=== PATIENT | female | born 1970 | race Caucasian/White ===

== ENCOUNTER 2016-11-23 13:33 | Emergency (ER) | payer OTHER ==
[~2016-11-23] VITALS: Ht 165.1 cm; Wt 68.0 kg
[2016-11-23 13:38] VITALS: TEMP 36.7; Ht 165.1 cm; Wt 68.0 kg
[2016-11-23] MEDS ORDERED: NXM/40 PO (14:34)
[2016-11-23] MEDS ORDERED: LINA1CAP2 PO (14:34)
[2016-11-23] MEDS ORDERED: DIAZ-165 PO (14:34)
[2016-11-23] MEDS ORDERED: ACYC1OIN4 TOP (14:34)
[2016-11-23] MEDS ORDERED: LINA1CAP PO (14:34)
[2016-11-23] MEDS ORDERED: [UNRECOGNIZED DRUG - CODE] PO (14:34)
[2016-11-23] MEDS ORDERED: MULT-506 PO (14:34)
[2016-11-23] MEDS ORDERED: UBIQ1CAP8 PO (14:34)
[2016-11-23] MEDS ORDERED: SACC250C PO (14:34)
[2016-11-23] MEDS ORDERED: [UNRECOGNIZED DRUG - CODE] PO (14:34)
[2016-11-23] MEDS ORDERED: LEVO50TA PO (14:34)
[2016-11-23] MEDS ORDERED: GLUT1POW PO (14:34)
[2016-11-23] MEDS ORDERED: BTLAI INJ (14:34)
[2016-11-23] MEDS ORDERED: OMEGCAP2 PO (14:34)
[2016-11-23] MEDS ORDERED: MAGN1TAB21 PO (14:34)
[2016-11-23] MEDS ORDERED: PYRI60TA3 PO (14:34)
[2016-11-23] MEDS ORDERED: ACET-1256 PO (14:34)
[2016-11-23] MEDS ORDERED: MISC1TAB29 PO (14:34)
[2016-11-23] MEDS ORDERED: DICL1GEL12 TOP (14:34)
[2016-11-23] MEDS ORDERED: LORA10CA2 PO (14:34)
[2016-11-23] MEDS ORDERED: PRMT10 PO (14:34)
[2016-11-23] MEDS ORDERED: LEVO25TA PO (14:34)
[2016-11-23] MEDS ORDERED: CHOL100027 PO (14:34)
[2016-11-23] MEDS ORDERED: [UNRECOGNIZED DRUG - CODE] PO (14:34)
[2016-11-23] MEDS ORDERED: PROP10TA7 PO (14:34)
[2016-11-23] MEDS ORDERED: MELA1CAP PO (14:34)
[2016-11-23] MEDS ORDERED: LACT1CAP6 PO (14:34)
[2016-11-23] MEDS ORDERED: CYCL0.052 OPB (14:34)
[2016-11-23] MEDS ORDERED: GLAT1INJ INJ (14:34)
[2016-11-23] MEDS ORDERED: IBUP-1449 PO (14:34)
[2016-11-23] MEDS ORDERED: medical marijuana (14:35)
[2016-11-23] MEDS ORDERED: LTMOPS OP (14:35)
[2016-11-23 14:49] LABS: URINE APPEARANCE CLEAR (CLEAR); URINE BILIRUBIN NEG (NEG); URINE COLOR YELLOW; URINE EPITHELIAL CELL AUTO 0-5 /lpf (0-5); URINE NITRITE NEG (NEG); URINE PH 5.5 (4.5-7.5); URINE SPECIFIC GRAVITY 1.014 (1.000-1.030); UROBILINOGEN NEG (NEG); ZZUR CULT IF INDIC CLEAN CATCH NO
[2016-11-23 14:52] LABS: MANUAL MICROSCOPIC REQUIRED? NO; REVIEW REQ? NO
[2016-11-23 14:58] LABS: BASO % 0.8 %; BASO ABS # 0.05 K/uL (0-0.2); COMPLETE YES; IG% 0.2 %; LYMPH % 37.5 %; LYMPH ABS # 2.34 K/uL (1.2-3.4); MEAN CELL VOLUME 83.3 fL (80-100); MEAN CORPUSCULAR HGB CONC 35.9 g/dl (32-36); MONO % 8.2 %; NEUT % 50.3 %; PLATELET COUNT 278 K/uL (130-400); RED BLOOD COUNT 4.44 M/uL (4.2-5.4); WHITE BLOOD COUNT 6.24 K/uL (4.8-10.8)
[2016-11-23] MEDS ORDERED: SODIUM CHLORIDE 0.9% 1000ML 2,000 ML IV STA (15:06)
[2016-11-23] MEDS ORDERED: PROMETHAZINE HCL INJ 12.5 MG in SODIUM CHLORIDE 0.9% 50ML 50 ML IV STA (15:06)
[2016-11-23] MEDS ORDERED: HYDROmorphone INJ 2 MG/ML SYR/VIAL IV PRN (15:15)
--- NOTE | 2016-11-23 15:17 | EMERGENCY ROOM VISIT NOTE ---
History Report prepared by Joel: Elian Cordova Under the Supervision of: Dr. Mannie Inman M.D. First contact with patient: 15:01 Chief Complaint: GI ASSESSMENT Stated Complaint: GASTRIC PAIN, SPASMS, PAIN, THYROID ISSUES Nursing Triage Summary: Triage note: Pt reports abd stabbing pain over the past 4 days. "pt reports i can't eat or drink anything." pt reports diarhhea " but it has been going on for many many months." pt reports chronic nausea. pt reports hx of chronic abd spasms and "i have a numbner of medical conditions." History of Present Illness The patient is a 45 year old female who presents to the Emergency Room with complaints of persistent diarrhea beginning four days prior to arrival. She currently rates her discomfort as a 7/10 in severity. The patient associates nausea and abdominal cramping with today's symptoms. She states the diarrhea has been occurring over the past several weeks, however, recently just a sip of water will cause her to experience an episode of diarrhea. The patient notes she has consumed about 16 ounces of water over the past four days and experiences around 10 episodes of diarrhea per day. She also presents with complaints of worsening left shoulder pain beginning four days prior to arrival. The patient states her left shoulder pain began in the summer, but has worsened over the past several days. She attributes her shoulder pain to the position she was in for a procedure involving Botox to her lower esophageal sphincter. The patient states she saw her GI doctor on November 01, and the Bentyl she was given has not relieved her symptoms. She notes she has a history of chronic Lyme's Disease, connective tissue disease, EDS, dysautonomia, and situs inversus. The patient states she has been taking Zofran every day. She notes she recently finished Xifaxan for a small intestinal bacterial growth ( SIBO). The patient notes she is from [place], in which, she uses medical marijuana and 5 mg Valium three times a day. She states she has been taking her morning medications, but has not been taking her supplements consistently. The patient notes her thyroid testing started showing hyperthyroidism. Therefore, her levels were cut in October 27. As per step-father, the patient has appeared lethargic and garcia since the levels were decreased. The patient denies vomiting, fever, and a cough. Source of History: patient Onset: four days [employer] Position: other (global) Symptom Intensity: 05/22 Timing: other (persistent) Associated Symptoms: + abdominal pain (cramping), + diarrhea, + nausea Note: Associated symptoms: left shoulder pain. Review of Systems See HPI for pertinent positives & negatives. A total of 10 systems reviewed and were otherwise negative. Past Medical & Surgical Medical Problems: (1) Connective tissue disease (2) Dysautonomia (3) EDS (Jamshid-Danlos syndrome) (4) Lyme disease (5) Situs inversus Surgical Problems: (1) S/P oophorectomy Family History Patient reports no known family medical history. Social History Smoking Status: Never Smoker Marital Status: Occupation Status: disabled Current/Historical Medications Scheduled Caprylic Capric Triglyceride ( (Caprylic/Capric Triglycer), 800 MG PO TID Cholecalciferol (Vitamin D 1000 Unit), 5,000 INTER.UNIT PO DAILY Cyclosporine (Ophth) (Restasis), 2 DROP OPB TID Diazepam (Valium), 5 MG PO TID Esomeprazole Magnesium (Nexium), 40 MG PO Q2D Glatiramer Acetate (Copaxone), 40 MG INJ 3XWK Glutathione (Glutathione-L Reduced), 2 ML PO BID Lactobacillus (Probiotic), 2 CAP PO BID Levomefolic Acid (5-Mthf) (5-Mthf), 5 MG PO DAILY Levothyroxine Sodium (Synthroid), 25 MCG PO Q2D Levothyroxine Sodium (Synthroid), 50 MCG PO Q2D Licorice-Glycine (Rhizinate 3X), 2 TAB PO TIDM Linaclotide (Linzess), 145 MCG PO QPM Linaclotide (Linzess), 290 MCG PO QAM Loratadine (Claritin), 10 MG PO DAILY Loteprednol Etabonate (Lotemax), 1 DROPS OP BID Magnesium Citrate (Mg Suppleme (Magnesium Citrate), 300 MG PO BID Bzalwrguu-Arfjziiw-Tcrnfxyob-P (Melatonin + L-Theanine), 2 TAB PO HS Midodrine (Midodrine HCl), 15 MG PO TID Misc Natural Products (Cortisol Entry Processor), 2 TABS PO QAM Multivitamin (Multivitamin), 1 TAB PO DAILY Miller-3 Fatty Acids (Fish Oil), 3 CAP PO DAILY Propranolol (Inderal), 10 MG PO BID Pyridostigmine [place] (Mestinon), 60 MG PO TID Saccharomyces Boulardii (Florastor), 250 MG PO BID Ubiquinol (Ubiquinol), 200 MG PO DAILY Scheduled PRN Ibuprofen Tab (Motrin), 400 MG PO for Pain Oxycodone Ir (Roxicodone Ir), 1-2 TAB PO Q4H PRN for Pain Miscellaneous Medications Acetaminophen (Tylenol), 500 MG PO Acyclovir Topical (Acyclovir), 1 APPLN TOP Botulinum Toxin Type A (Botox), Unknown Dose INJ Diclofenac Sodium (Topical) (Voltaren 1% Top Gel), 1 APPLN TOP [medical marijuana] Allergies Coded Allergies: Penicillins (Unverified Allergy, Unknown, rash, 11/23/16) Physical Exam Vital Signs Date Time Temp Pulse Resp B/P Pulse Ox O2 Delivery O2 Flow Rate FiO2 11/23/16 17:27 74 16 109/79 100 Room Air 11/23/16 15:57 53 16 118/71 96 Room Air 11/23/16 13:38 36.7 84 18 98/71 98 Room Air Physical Exam GENERAL: Patient is in no acute distress. HEENT: No acute trauma, normocephalic atraumatic, mucous membranes dry, no nasal congestion, no scleral icterus. NECK: No stridor, no adenopathy, no meningismus, trachea is midline. LUNGS: Clear to auscultation bilaterally, no wheeze, no rhonchi, breath sounds equal. HEART: Without murmurs gallops or rubs, regular rate and rhythm. ABDOMEN: Mildly diffusely tender. Soft, bowel sounds present and hyperactive, no hernias, no peritonitis. EXTREMITIES: No cyanosis or edema, full range of motion of all the joints without pain or difficulty, no signs for acute trauma. NEUROLOGIC: Oriented x 3, no acute motor or sensory deficits, no focal weakness. SKIN: No rash, no jaundice, no diaphoresis. Medical Decision & Procedures ER Provider Diagnostic Interpretation: X-ray results as stated below per interpretation by me and the radiologist: ABDOMEN 2VIEW W/PA CHEST RTN CLINICAL HISTORY: Lower abdominal pain and cramps COMPARISON STUDY: No previous studies for comparison. FINDINGS: The erect chest reveals no free air. There is no focal pulmonary consolidation. Erect and supine views the abdomen reveal mild gaseous prominence of left abdominal bowel loops which appears represent both small bowel and colon. There are scattered air-fluid levels. There are no transition zone to indicate a high-grade bowel obstruction. There is a paucity of gas within the right abdomen. IMPRESSION: Nonspecific bowel gas pattern with a paucity of bowel gas within the right abdomen. No evidence of free air. No conventional radiographic evidence of a high-grade bowel obstruction. Scattered air-fluid levels. If clinically indicated, CT scanning could be obtained in follow-up to explain the paucity of right abdominal bowel gas Electronically signed by: Renny Degroot M.D. 11/23/2016 3:55 PM Dictated Date/Time: 11/23/2016 3:50 PM Laboratory Results 11/23/16 14:40 Red Blood Count 4.44, Mean Corpuscular Volume 83.3, Mean Corpuscular Hemoglobin 30.0, Mean Corpuscular Hemoglobin Concent 35.9, Mean Platelet Volume 10.0, Neutrophils (%) (Auto) 50.3, Lymphocytes (%) (Auto) 37.5, Monocytes (%) (Auto) 8.2, Eosinophils (%) (Auto) 3.0, Basophils (%) (Auto) 0.8, Neutrophils # (Auto) 3.14, Lymphocytes # (Auto) 2.34, Monocytes # (Auto) 0.51, Eosinophils # (Auto) 0.19, Basophils # (Auto) 0.05 11/23/16 14:40 Test 11/23/16 14:25 11/23/16 14:40 Urine Color YELLOW Urine Appearance CLEAR (CLEAR) Urine pH 5.5 (4.5-7.5) Urine Specific [place] 1.014 (1.000-1.030) Urine Protein NEG (NEG) Urine Glucose (UA) NEG (NEG) Urine Ketones TRACE (NEG) Urine Occult Blood NEG (NEG) Urine Nitrite NEG (NEG) Urine Bilirubin NEG (NEG) Urine Urobilinogen NEG (NEG) Urine Leukocyte Esterase TRACE (NEG) Urine WBC (Auto) 1-5 /hpf (0-5) Urine RBC (Auto) 0-4 /hpf (0-4) Urine Hyaline Casts (Auto) 1-5 /lpf (0-5) Urine Epithelial Cells (Auto) 0-5 /lpf (0-5) Urine Bacteria (Auto) NEG (NEG) White Blood Count 6.24 K/uL (4.8-10.8) Red Blood Count 4.44 M/uL (4.2-5.4) Hemoglobin 13.3 g/dL (12.0-16.0) Hematocrit 37.0 % (37-47) Mean Corpuscular Volume 83.3 fL (80-100) Mean Corpuscular Hemoglobin 30.0 pg (25-34) Mean Corpuscular Hemoglobin Concent 35.9 g/dl (32-36) Platelet Count 278 K/uL (130-400) Mean Platelet Volume 10.0 fL (7.4-10.4) Neutrophils (%) (Auto) 50.3 % Lymphocytes (%) (Auto) 37.5 % Monocytes (%) (Auto) 8.2 % Eosinophils (%) (Auto) 3.0 % Basophils (%) (Auto) 0.8 % Neutrophils # (Auto) 3.14 K/uL (1.4-6.5) Lymphocytes # (Auto) 2.34 K/uL (1.2-3.4) Monocytes # (Auto) 0.51 K/uL (0.11-0.59) Eosinophils # (Auto) 0.19 K/uL (0-0.5) Basophils # (Auto) 0.05 K/uL (0-0.2) RDW Standard Deviation 39.6 fL (36.4-46.3) RDW Coefficient of Variation 13.1 % (11.5-14.5) Immature Granulocyte % (Auto) 0.2 % Immature Granulocyte # (Auto) 0.01 K/uL (0.00-0.02) Anion Gap 8.0 mmol/L (3-11) Est Creatinine Clear Calc Drug Dose 72.6 ml/min Estimated GFR () 92.0 Estimated GFR (Non- 79.3 BUN/Creatinine Ratio 16.0 (10-20) Calcium Level 9.9 mg/dl (8.5-10.1) Magnesium Level 2.0 mg/dl (1.8-2.4) Total Bilirubin 0.5 mg/dl (0.2-1) Aspartate Amino Transf (AST/SGOT) 13 U/L (15-37) Alanine Aminotransferase (ALT/SGPT) 22 U/L (12-78) Alkaline Phosphatase 76 U/L (45-117) Total Protein 8.0 gm/dl (6.4-8.2) Albumin 4.2 gm/dl (3.4-5.0) Globulin 3.8 gm/dl (2.5-4.0) Albumin/Globulin Ratio 1.1 (0.9-2) Lipase 119 U/L (73-393) Thyroid Stimulating Hormone (TSH) 0.550 uIu/ml (0.300-4.500) Free Thyroxine 1.13 ng/dl (0.80-1.60) Laboratory results reviewed by me. Medications Administered Medications (Trade) Dose Ordered Sig/Jonnie Route Start Time Stop Time Status Last Admin Dose Admin Sodium Chloride 2,000 ml @ 999 mls/hr Q2H1M STAT IV 11/23/16 15:06 11/23/16 17:06 DC 11/23/16 15:18 999 MLS/HR Promethazine HCl/ Sodium Chloride (Phenergan Inj/ Nss 50ml) 50.5 ml @ 204 mls/hr NOW STAT IV 11/23/16 15:06 11/23/16 15:20 DC 11/23/16 15:18 204 MLS/HR Hydromorphone HCl (Dilaudid Inj) 1 mg Q30M PRN IV 11/23/16 15:15 11/23/16 18:38 DC 11/23/16 15:19 1 MG ED Course 1502: The patient was evaluated in room C10. A complete history and physical exam was performed. 1506: Ordered Promethazine HCl 12.5 mg/Sodium Chloride 50.5 ml @ 204 mls/hr IV, Sodium Chloride 2,000 ml @ 999 mls/hr IV. 1515: Ordered Dilaudid Inj 1 mg IV. 1705: Reevaluated the patient. Discussed results and discharge instructions: She verbalized understanding and agreement. The patient is ready for discharge. Medical Decision The differential diagnoses include but are not limited to: dehydration, electrolyte imbalance, anemia, UTI, pneumonia, bowel obstruction, viral illness , medication reaction, exacerbation of chronic disease. There is no leukocytosis or concerning anemia. No significant electrolyte abnormality, kidney failure or hepatitis. There is no pancreatitis. The patient appears to be in a euthyroid state. Urinalysis does not show evidence for infection or for significant hematuria. Obstruction series does not show bowel obstruction, free air or pneumonia. The patient received IV saline, IV Phenergan and IV Dilaudid, she feels significantly improved. The patient's workup is benign, she has had issues like this in the past, she has a lot of chronic disease that sometimes flares. She is not toxic or febrile. I do think she can be discharged to continue her medications as before. I will add a few oxycodone for severe pain. She has nausea medication at home. If things are worsening, she can return. She is traveling back to her home town tomorrow. [facility] Search Results: patient reviewed within database, no issues identified Impression Primary Impression: Dehydration Additional Impression: Acute on chronic pain Scribe Attestation The scribe's documentation has been prepared under my direction and personally reviewed by me in its entirety. I confirm that the note above accurately reflects all work, treatment, procedures, and medical decision making performed by me. Departure Information Dispostion Home / Self-Care Prescriptions Oxycodone Ir (Roxicodone Ir) 5 Mg Tab 1-2 TAB PO Q4H Y for Pain, #8 TAB Prov: Mannie Inman M.D. 11/23/16 Referrals No Doctor, Assigned (PCP) Forms HOME CARE DOCUMENTATION FORM, IMPORTANT VISIT INFORMATION Patient Instructions A Signature Page, My [facility] Additional Instructions zofran as before for nausea and vomiting oxy ir 1 tab every 4 hours for severe pain follow with [facility] as scheduled return if worsening all testing today was ok as discussed Problem Qualifiers
[2016-11-23 15:18] LABS: CALCIUM 9.9 mg/dl (8.5-10.1); CREATININE 0.88 mg/dl (0.60-1.20); POTASSIUM 3.7 mmol/L (3.5-5.1)
[2016-11-23 15:21] LABS: ALB/GLOB RATIO 1.1 (0.9-2)
[2016-11-23 15:53] LABS: THYROID STIMULATING HORMONE 0.55 uIu/ml (0.300-4.500)
--- NOTE | 2016-11-23 15:57 | DIAGNOSTIC IMAGING REPORT ---
ABDOMEN 2VIEW W/PA CHEST RTN CLINICAL HISTORY: Lower abdominal pain and cramps COMPARISON STUDY: No previous studies for comparison. FINDINGS: The erect chest reveals no free air. There is no focal pulmonary consolidation. Erect and supine views the abdomen reveal mild gaseous prominence of left abdominal bowel loops which appears represent both small bowel and colon. There are scattered air-fluid levels. There are no transition zone to indicate a high-grade bowel obstruction. There is a paucity of gas within the right abdomen. IMPRESSION: Nonspecific bowel gas pattern with a paucity of bowel gas within the right abdomen. No evidence of free air. No conventional radiographic evidence of a high-grade bowel obstruction. Scattered air-fluid levels. If clinically indicated, CT scanning could be obtained in follow-up to explain the paucity of right abdominal bowel gas Electronically signed by: Renny Degroot M.D. 11/23/2016 3:55 PM Dictated Date/Time: 11/23/2016 3:50 PM
[2016-11-23] MEDS ORDERED: OXYC1TAB3 PO (17:18)
[2016-11-23 17:27] VITALS: BP 109/79; PULSE 74; O2SAT 100
== END 2016-11-23 17:29 | disposition home or self-care (01) ==
LOC: C.EDB 13:37 → C.EDC 17:29
DX: E86.0 Dehydration (principal); G89.29 Other chronic pain; R10.9 Unspecified abdominal pain; M25.512 Pain in left shoulder; Q79.6 Ehlers-Danlos syndromes; G90.1 Familial dysautonomia [Riley-Day]; Q89.3 Situs inversus; E05.90 Thyrotoxicosis, unspecified without thyrotoxic crisis or storm; Z79.899 Other long term (current) drug therapy

== ENCOUNTER 2017-11-08 14:36 | Emergency (ER) | payer OTHER ==
[~2017-11-08] VITALS: Ht 165.1 cm; Wt 68.1 kg
[~2017-11-08 14:36] MED LIST: ACET-1256 PO; ACYC1OIN4 TOP; BTLAI INJ; CHOL100027 PO; CYCL0.052 OPB; DIAZ-165 PO; DICL1GEL12 TOP; GLAT1INJ INJ; GLUT1POW PO; IBUP-1449 PO; LACT1CAP6 PO; LEVO25TA PO; LEVO50TA PO; LINA1CAP PO; LINA1CAP2 PO; LORA10CA2 PO; LTMOPS OP; MAGN1TAB21 PO; MELA1CAP PO; MISC1TAB29 PO; MULT-506 PO; NXM/40 PO; OMEGCAP2 PO; PRMT10 PO; PROP10TA7 PO; PYRI60TA3 PO; SACC250C PO; UBIQ1CAP8 PO; [UNRECOGNIZED DRUG - CODE] PO; [UNRECOGNIZED DRUG - CODE] PO; [UNRECOGNIZED DRUG - CODE] PO; medical marijuana
[2017-11-08 14:49] VITALS: TEMP 36.4; Ht 165.1 cm; Wt 68.1 kg
[2017-11-08] MEDS ORDERED: MRN5 PO (15:33)
[2017-11-08] MEDS ORDERED: ZNTT/150 PO (15:35)
[2017-11-08] MEDS ORDERED: AMT24 PO (15:35)
[2017-11-08] MEDS ORDERED: GABA1SOL4 PO (15:36)
[2017-11-08] MEDS ORDERED: DiphenhydrAMINE HCL 50 MG/ML VIAL IV STA (15:53)
[2017-11-08] MEDS ORDERED: METHYLPREDNISOLONE 125 MG VIAL IV STA (15:53)
--- NOTE | 2017-11-08 15:56 | EMERGENCY ROOM VISIT NOTE ---
History Report prepared by Joel: Lila Roman Under the Supervision of: Dr. Buster Lobo M.D. First contact with patient: 15:13 Chief Complaint: ALLERGIC REACTION Stated Complaint: HIVES,HEAVY CHEST,PAINFUL BREATHING WHEN ACTIVE History of Present Illness The patient is a 46 year old female with a past medical history of connective tissue disease, dysautonomia, EDS, situs inversus, and lyme disease who presents to the ED with a cc of a persistent allergic reaction beginning 2 days ago. Positive shortness of breath, occasional chest pain, and chronic nausea. The patient states that 3 days ago she began taking Amitiza for her constipation, noting that an hour later she began experiencing an itchy and painful rash that spread throughout her body. She notes that she took Claritin this morning, which did not relieve her symptoms. Source of History: patient Onset: 2 days ago Position: other (global) Quality: other (allergic reaction) Timing: other (persistent) Review of Systems See HPI for pertinent positives and negatives. A total of ten systems were reviewed and were otherwise negative. Past Medical & Surgical Medical Problems: (1) Connective tissue disease (2) Dysautonomia (3) EDS (Jamshid-Danlos syndrome) (4) Lyme disease (5) Situs inversus Surgical Problems: (1) S/P oophorectomy Family History Patient reports no known family medical history. Social History Smoking Status: Never Smoker Marital Status: Occupation Status: disabled Current/Historical Medications Scheduled Cholecalciferol (Vitamin D 1000 Unit), 10,000 INTER.UNIT PO DAILY Cyclosporine (Ophth) (Restasis), 2 DROP OPB TID Diazepam (Valium), 5 MG PO TID Gabapentin (Gabapentin), 2 ML PO HS Glatiramer Acetate (Copaxone), 40 MG INJ 3XWK Levothyroxine Sodium (Synthroid), 50 MCG PO DAILY Loratadine (Claritin), 10 MG PO DAILY Lubiprostone (Amitiza), 24 MCG PO BID Midodrine (Midodrine HCl), 15 MG PO TID Ranitidine (Zantac), 150 MG PO DAILY Miscellaneous Medications Acetaminophen (Tylenol), 500 MG PO Acyclovir Topical (Acyclovir), 1 APPLN TOP Botulinum Toxin Type A (Botox), Unknown Dose INJ Allergies Coded Allergies: Penicillins (Unverified Allergy, Unknown, rash, 11/08/17) Erythromycin (Unverified Adverse Reaction, Unknown, GI UPSET, 11/08/17) Lidocaine (Unverified Adverse Reaction, Unknown, GI ISSUES, 11/08/17) Physical Exam Vital Signs Date Time Temp Pulse Resp B/P (MAP) Pulse Ox O2 Delivery O2 Flow Rate FiO2 11/08/17 17:49 53 12 115/74 96 11/08/17 17:17 50 16 110/71 97 Room Air 11/08/17 16:05 98 Room Air 11/08/17 16:00 51 122/74 96 Room Air 11/08/17 15:50 98 Room Air 11/08/17 15:39 54 16 125/79 97 Room Air 11/08/17 15:32 50 11/08/17 15:25 97 Room Air 11/08/17 15:20 56 16 99/52 98 Room Air 11/08/17 14:49 36.4 63 18 135/68 100 Room Air Physical Exam GENERAL: Awake, alert, well-appearing, NAD HENT: Normocephalic, atraumatic. EYES: Normal conjunctiva. Sclera non-icteric. NECK: Supple. No nuchal rigidity. FROM. RESPIRATORY: CTAB, no rhonchi, wheezing, crackles CARDIAC: RRR, no MRG ABDOMEN: Soft, NTND, BS+ MSK: No chest wall TTP, no LE edema NEURO: GCS 15, CN 2-12 intact, moves all 4s on command SKIN: Excoriation to right upper extremity, some blanching redness maculopapular. No rash or jaundice noted. Medical Decision & Procedures Laboratory Results Test 11/08/17 15:45 Bedside Troponin I < 0.030 ng/ml (0-0.045) Laboratory results reviewed by me Medications Administered Medications (Trade) Dose Ordered Sig/Jonnie Route Start Time Stop Time Status Last Admin Dose Admin Methylprednisolone Sodium Succinate (Solu-Medrol IV) 125 mg NOW STAT IV 11/08/17 15:53 11/08/17 16:00 DC 11/08/17 16:14 125 MG Diphenhydramine HCl (Benadryl Inj) 50 mg NOW STAT IV 11/08/17 15:53 11/08/17 16:00 DC 11/08/17 16:14 50 MG Famotidine (Pepcid Tab) 20 mg NOW ONCE PO 11/08/17 16:00 11/08/17 16:01 DC 11/08/17 16:14 20 MG ECG Indication: other (allergic reaction) Rate (beats per minute): 51 Rhythm: sinus bradycardia Findings: left axis deviation, other (normal interval, no STS changes or TWI) Change: 1729- repeated EKG findings: Sinus bradycardia, rate of 53, normal intervals, normal axis, no STS changes or ITW. ED Course 152: The patient was evaluated in room C2A. A complete history and physical exam was performed. 171: I reevaluated the patient, who was resting comfortably. Ordered a second EKG. 1728: I evaluated the second EKG and compared the findings. 1809: I reevaluated the patient. Discussed results and discharge instructions: She verbalized understanding and agreement. The patient is ready for discharge. Medical Decision The patient is a 46 year old female with a past medical history of connective tissue disease, dysautonomia, EDS, situs inversus, and lyme disease who presents to the ED with a cc of a persistent allergic reaction beginning 2 days ago. Differential diagnosis: Etiologies such as allergic reaction, anaphylaxis, urticaria, Funes-Jack syndrome, toxic epidermal necrolysis, erythema multiforme, cellulitis, as well as others were entertained. Patient was seen and evaluated at the bedside. Patient stated that she was recently started on a medication for constipation and did notice a small rash that developed on her bilateral upper extremities. Patient also complaint of some mild chest discomfort. Patient has many medical problems. Patient's story does not sound consistent with any sort of ischemic chest pain. Patient did have an initial EKG with affirmative artifact in the inferior leads which read as acute NE however I believe this is related to the artifact. Patient did have a repeat EKG which was nonischemic. Of note the patient also had a negative troponin. Believe that her rash as it was itchy and it began after the medication began was was likely the culprit. Patient was advised to stop taking this medication. Patient was treated with steroids, famotidine, and Benadryl. Patient's rash is mildly improved. Patient had no nausea or vomiting. Patient did not have any stridor or wheezing. Patient was reassessed deemed suitable for at least follow-up and treatment. Patient was advised to stop the medication to follow-up with her family physician in order to discuss a different medication that she may try for her constipation. Patient was given strict follow-up, discharge, and return precautions. All questions were answered. Patient was deemed suitable for outpatient follow-up at this time. Patient agreed with the plan of care and was safely discharged home. Medication Reconcilliation Current Medication List: was personally reviewed by me Impression Primary Impression: Urticaria Additional Impression: Allergic reaction Scribe Attestation The scribe's documentation has been prepared under my direction and personally reviewed by me in its entirety. I confirm that the note above accurately reflects all work, treatment, procedures, and medical decision making performed by me. Departure Information Dispostion Home / Self-Care Referrals No Doctor, Assigned (PCP) Patient Instructions ED Allergic Reaction Local Other, ED Urticaria, My [facility] Additional Instructions Please return to the emergency department if you have worsening or recurrent symptoms not amenable to at-home treatment. Please call for a follow-up appointment with her primary care physician. Please take your medications as prescribed. If you have other concerns and/or complaints please feel free to also call your primary care physician's office or return the ED for further evaluation, management, and treatment. You may use Cortaid or Benadryl cream to help with itchiness and urticaria. If you are still having itchiness you may take [id number] Benadryl and or other antihistamine like Pepcid or famotidine. You may take 600 mg Ibuprofen every 6 hours as needed for pain with food for no more than 2 consecutive days. You may take tylenol 1000 mg every 6 hours as needed for pain. You may take motrin and tylenol separately or at the same time. Take your medications as prescribed. You have been examined and treated today on an emergency basis only. This is not a substitute for, or an effort to provide, complete comprehensive medical care. It is impossible to recognize and treat all injuries or illnesses in a single emergency department visit. It is therefore important that you follow up closely with [facility], your PCP, and/or your specialist(s). Call as soon as possible for an appointment. Thank you for your time and consideration. I look forward to speaking with you again soon. Please don't hesitate to call us if you have any questions. Problem Qualifiers Additional Impression: Allergic reaction Encounter type: initial encounter Qualified Codes: T78.40XA - Allergy, unspecified, initial encounter
[2017-11-08] MEDS ORDERED: FAMOTIDINE 20 MG TAB PO ONE (16:00)
[2017-11-08 16:05] VITALS: O2SAT 98
[2017-11-08 17:49] VITALS: BP 115/74; PULSE 53; O2SAT 96
== END 2017-11-08 17:50 | disposition home or self-care (01) ==
LOC: C.EDB 14:37 → C.EDC 17:50
DX: L50.9 Urticaria, unspecified (principal); T78.40XA Allergy, unspecified, initial encounter; R06.02 Shortness of breath; R07.9 Chest pain, unspecified; R00.1 Bradycardia, unspecified; R11.0 Nausea; Q79.6 Ehlers-Danlos syndromes; Z79.899 Other long term (current) drug therapy